=== PATIENT | male | born 1990 | race Caucasian/White ===

== ENCOUNTER 2018-01-10 14:15 | Emergency (ER) | payer OTHER ==
[2018-01-10 14:27] VITALS: BP 138/91
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
--- NOTE | 2018-01-12 09:00 | CT ---
CT mandible Technique: Multiple axial sections through the mandible were obtained. Intravenous contrast was not utilized. Reconstructed coronal and sagittal images were reviewed. Findings: Plate and screws are identified within the left side of the mandible affixing a fracture line, alignment appears anatomic. Small amount of soft tissue air is seen at the surgical site. Temporomandibular joints appear within normal limits. Defect is noted at the site of previous posterior molar on the left side compatible with recent molar extraction. No additional abnormality is appreciated. Impression: 1. Fracture which appears anatomic in alignment and affixed with plate and screws within the left side of the mandible. 2. Lucent defect within the posterior left mandible compatible with recent molar extraction. 3. Small amount of soft tissue air is noted in the area of previous surgery which is felt to be incidental. Diagnostic code #3 Agree with preliminary report issued by [employer] [facility] ([facility] preliminary report dictated on 01/10/18, 6:03 PM Central Time)
== END 2018-01-10 17:39 | disposition home or self-care (01) ==
LOC: JD.ED 14:15
DX: G89.18 Other acute postprocedural pain (principal); R68.84 Jaw pain; F17.210 Nicotine dependence, cigarettes, uncomplicated; Z98.890 Other specified postprocedural states
CPT/HCPCS: 36415; 70486; 70486-26; 85007; 85027; 99283; 99284-25

== ENCOUNTER 2018-01-10 20:46 | Inpatient (IN) | payer OTHER ==
[2018-01-10] MEDS ORDERED: Sodium Chloride 0.9% 1,000 ML IV ONE (21:56)
[2018-01-10] MEDS ORDERED: Sodium Chloride 0.9% 10 ML Syringe FLUSH PRN ×2 (21:56→21:57)
[2018-01-10] MEDS ORDERED: Ketorolac 30 MG/ML SDV IVPUSH ONE (21:56)
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
[2018-01-10] MEDS ORDERED: Clindamycin Phosphate 900 MG in Sodium Chloride 0.9% 100 ML IV ONE (23:08)
[2018-01-10] MEDS ORDERED: VANCOMYCIN IV ONE (23:11)
[2018-01-10] MEDS ORDERED: SODIUM CHLORIDE 0.9% IV ONE (23:11)
[2018-01-10] MEDS ORDERED: Vancomycin 1 GM, Vancomycin 500 MG in Sodium Chloride 0.9% 500 ML IV ONE (23:14)
[2018-01-10] MEDS ORDERED: Ondansetron 4 MG/2 ML SDV IV PRN (23:36)
[2018-01-10] MEDS ORDERED: Polyethylene Glycol 3350 Powder 17 GM Packet PO PRN (23:36)
[2018-01-10] MEDS ORDERED: Promethazine 12.5 MG in Sodium Chloride 0.9% 50 ML IV PRN (23:36)
[2018-01-10] MEDS ORDERED: Albuterol/Ipratropium 3.0-0.5 MG/3 ML Neb Soln NEB PRN (23:36)
[2018-01-10] MEDS ORDERED: Vancomycin 1 GM AdvVial ONE (23:36)
[2018-01-10] MEDS ORDERED: Metoprolol Tartrate 5 MG/5 ML SDV IVPUSH PRN (23:36)
[2018-01-10] MEDS ORDERED: LORazepam 2 MG/ML SDV IVPUSH PRN (23:36)
[2018-01-10] MEDS ORDERED: Docusate Sodium 100 MG Cap PO PRN (23:36)
[2018-01-10] MEDS ORDERED: Vancomycin 500 MG SDV ONE (23:36)
[2018-01-10] MEDS ORDERED: hydrALAZINE 20 MG/ML SDV IVPUSH PRN (23:36)
[2018-01-10] MEDS ORDERED: oxyCODONE 5 MG Tab PO PRN (23:36)
[2018-01-10] MEDS ORDERED: LORazepam 2 MG/ML SDV IV PRN ×2 (23:36→23:55)
[2018-01-10] MEDS ORDERED: Bisacodyl 5 MG Tab PO PRN (23:36)
[2018-01-10] MEDS ORDERED: Acetaminophen 325 MG Tab PO PRN (23:36)
[2018-01-10] MEDS ORDERED: Sodium Chloride 0.9% 0 ML ONE (23:37)
[2018-01-10] MEDS ORDERED: Sodium Chloride 0.9% 500 ML ONE (23:43)
[2018-01-10] MEDS ORDERED: Vancomycin 1 GM SDV ONE (23:44)
[2018-01-10] MEDS ORDERED: Vancomycin 500 MG SDV IV SCH (23:45)
[2018-01-10] MEDS ORDERED: Vancomycin 1 GM, Vancomycin 750 MG in Sodium Chloride 0.9% 500 ML IV ONE (23:45)
[2018-01-11] MEDS: Sodium Chloride 0.9% 1,000 ML IV SCH ×3 (01:10→16:55)
[2018-01-11] MEDS: HYDROmorphone 0.5 MG/0.5 ML Syringe IVPUSH PRN ×2 (01:11→06:45)
[2018-01-11] MEDS: Temazepam 15 MG Cap PO PRN ×2 (01:11→21:05)
[2018-01-11] MEDS: Clindamycin Phosphate 600 MG in Sodium Chloride 0.9% 100 ML IV SCH ×3 (06:40→18:48)
--- NOTE | 2018-01-11 07:59 | PCM.HP ---
H&P History of Present Illness - General Date of Service: 01/11/18 Admit Problem/Dx: Admission Diagnosis/Problem Admission Diagnosis/Problem Cellulitis Source of Information: Patient, Family, Old Records, Provider, RN Notes Reviewed History Limitations: Reports: No Limitations - History of Present Illness Initial Comments - Free Text/Narative: This is a 27 yo healthy young male with no significant past medical hx who comes in with complaints of mandibular, lower jaw and anterior neck pain associated with dysphagia, after undergoing mandibular surgery on 01/06/2018. He was prescribed with oral antibiotic and percocet but his pain was out of control. His speech is mildly abnormal and he has difficulty with eating or drinking. He denies any fever or chills. He was seen initially by Dr. Cormier in ER but was sent home with the same regimen after consulting with a specialist Dr. Webster. However his symptoms continue to linger and therefore he comes back to ED for further evaluation and management. His initial work up in ED shows a CBC remarkable for WBC of 18.01, MCHC of 36, Platelet count of 367, MPV of 9.1, Neutrophils of 84%, Lymphocytes of 5% and Eosinophils/Basophils of 0%. His chemistry is significant for sodium of 135, AG of 15.6, Glucose of 109, Ca2+ of 10.2, CRP of 1.8, and Total Protein of 8.8. His facial and sinus imaging study reads Status post ORIF left mandible. Extracted 3rd molar on the left. Patient is being admitted for Intractable Mandibular, Lower Jaw and Neck Pain with Possible SSTI. Throat Pain Score (Numeric/FACES): 10 - Related Data Allergies/Adverse Reactions: Allergies Allergy/AdvReac Type Severity Reaction Status Date / Time No Known Allergies Allergy Verified 01/11/18 02:03 Home Medications: Home Meds Acetaminophen/oxyCODONE [Percocet 325-5 MG] 1 each PO Q4HR PRN 01/10/18 [History ] Amoxicillin/Clavulanate K [Augmentin 500-125 MG] 1 tab PO BID 01/10/18 [History] Famotidine 40 mg PO DAILY #30 tablet 01/12/18 [Rx] Ibuprofen [Motrin] 600 mg PO Q6H PRN #20 tab 01/12/18 [Rx] Past Medical History Musculoskeletal History: Reports: Fracture Other Musculoskeletal History: back injury, Fx- no surgery needed. - Infectious Disease History Infectious Disease History: Reports: Chicken Pox, Influenza - Past Surgical History HEENT Surgical History: Reports: Oral Surgery, Other (See Below) Other HEENT Surgeries/Procedures: jaw surgery GI Surgical History: Reports: Hernia, Inguinal Musculoskeletal Surgical History: Reports: None Social & Family History - Family History Family Medical History: Noncontributory - Tobacco Use Smoking Status *Q: Current Some Day Smoker Years of Tobacco use: 2 Packs/Tins Daily: 0.1 Used Tobacco, but Quit: No Second Hand Smoke Exposure: No - Caffeine Use Caffeine Use: Reports: Energy Drinks Other Caffeine Use: 2 cans a day - Recreational Drug Use Recreational Drug Use: No - Living Situation & Occupation Living situation: Reports: Single, Alone Occupation: Employed ([employer]) H&P Review of Systems - Review of Systems: Review Of Systems: See Below General: Reports: Fatigue. Denies: Fever, Chills, Malaise, Weakness HEENT: Reports: No Symptoms, Dysphasia, Other (left mandibular and neck pain). Denies: Headaches, Sore Throat, Visual Changes Pulmonary: Denies: Shortness of Breath Cardiovascular: Reports: Lightheadedness. Denies: Chest Pain, Dyspnea on Exertion Gastrointestinal: Reports: Decreased Appetite, Difficulty Swallowing, Vomiting. Denies: Abdominal Pain, Nausea Genitourinary: Reports: No Symptoms Musculoskeletal: Reports: No Symptoms Skin: Reports: Erythema (neck). Denies: Cyanosis, Pallor Psychiatric: Denies: Depression, Anxiety, Agitation Neurological: Denies: Confusion, Headache, Difficulty Walking, Weakness, Gait Disturbance Hematologic/Lymphatic: Reports: No Symptoms Immunologic: Reports: No Symptoms Exam - Exam Exam: See Below - Vital Signs Vital Signs: Last Vital Signs Temp 36.8 C 01/11/18 03:36 Pulse 92 01/11/18 03:36 Resp 12 01/11/18 03:36 BP 112/64 01/11/18 03:36 Pulse Ox 98 01/11/18 03:36 Weight: 64.138 kg - Exam General: Alert, Oriented, Cooperative, Mild Distress HEENT: Conjunctiva Clear, EACs Clear, EOMI, Hearing Intact, Nares Patent, Normal Nasal Septum, Pupils Equal, Pupils Reactive, Other (limited oropharyngeal exam; lower frontal teeth gum is inflamed; difficulty opening his mouth; leftside of his face near lower jaw is swollen, red and tender to palpation). No: Mucosa Moist & [place], Posterior Pharynx Clear Neck: Supple, Trachea Midline Lungs: Clear to Auscultation, Normal Respiratory Effort Cardiovascular: Regular Rate, Regular Rhythm GI/Abdominal Exam: Normal Bowel Sounds, Soft, Non-Tender, No Organomegaly, No Distention, No Abnormal Bruit (Male) Exam: Deferred Rectal (Males) Exam: Deferred Back Exam: Normal Inspection, Full Range of Motion Extremities: Normal Inspection, Normal Range of Motion, Non-Tender, No Pedal Edema, Normal Capillary Refill Peripheral Pulses: 3+: Posterior Tibial (L), Posterior Tibial (R), Dorsalis Pedis (L), Dorsalis Pedis (R) Skin: Warm, Dry, Intact Neuro Extensive - Mental Status: Oriented x3, Normal Cognition, Memory Intact Neuro Extensive - Motor, Sensory, Reflexes: CN II-XII Intact, Normal Gait DTR: 2+: Achilles (L), Achilles (R) Psychiatric: Alert, Normal Affect, Normal Mood - Patient Data Lab Results Last 24 hrs: Laboratory Results - last 24 hr 01/10/18 01/10/18 01/11/18 Range/Units 22:16 22:16 05:45 WBC 18.01 H 11.89 H (4.23-9.07) K/mm3 RBC 5.90 5.20 (4.63-6.08) M/mm3 Hgb 17.4 15.3 (13.7-17.5) gm/L Hct 48.4 43.4 (40.1-51.0) % MCV 82.0 83.5 (79.0-92.2) fl MCH 29.5 29.4 (25.7-32.2) pg MCHC 36.0 H 35.3 (32.2-35.5) g/dl RDW Std Deviation 36.5 36.7 (35.1-43.9) fL Plt Count 367 H 335 (163-337) K/mm3 MPV 9.1 L 9.3 L (9.4-12.3) fl Neut % (Auto) 75.4 H (34.0-67.9) % Lymph % (Auto) 15.2 L (21.8-53.1) % [place] % (Auto) 8.6 (5.3-12.2) % Eos % (Auto) 0.5 L (0.8-7.0) Baso % (Auto) 0.1 (0.1-1.2) % Neut # (Auto) 8.97 H (1.78-5.38) K/mm3 Lymph # (Auto) 1.81 (1.32-3.57) K/mm3 [place] # (Auto) 1.02 H (0.30-0.82) K/mm3 Eos # (Auto) 0.06 (0.04-0.54) K/mm3 Baso # (Auto) 0.01 (0.01-0.08) K/mm3 Neutrophils % (Manual) 84 H (40-60) % Band Neutrophils % 0 (0-10) % Lymphocytes % (Manual) 5 L (20-40) % Atypical Lymphs % 3 % Monocytes % (Manual) 8 (2-10) % Eosinophils % (Manual) 0 L (0.8-7.0) % Basophils % (Manual) 0 L (0.2-1.2) Toxic Granulation 1+ slight Platelet Estimate Adequate Plt Morphology Comment See note RBC Morph Comment Normal Sodium 135 L (136-145) mEq/L Potassium 4.6 (3.5-5.1) mEq/L Chloride 99 (98-107) mEq/L Carbon Dioxide 25 (21-32) mEq/L Anion Gap 15.6 H (5-15) BUN 15 (7-18) mg/dL Creatinine 1.0 (0.7-1.3) mg/dL Est Cr Clr Drug Dosing 105.84 mL/min Estimated GFR (MDRD) > 60 (>60) mL/min BUN/Creatinine Ratio 15.0 (14-18) Glucose 109 H (74-106) mg/dL Calcium 10.2 H (8.5-10.1) mg/dL Magnesium (1.8-2.4) mg/dl Total Bilirubin 0.6 (0.2-1.0) mg/dL AST 18 (15-37) U/L ALT 27 (16-63) U/L Alkaline Phosphatase 63 (46-116) U/L C-Reactive Protein 1.8 H* (<1.0) mg/dL Total Protein 8.8 H (6.4-8.2) g/dl Albumin 4.2 (3.4-5.0) g/dl Globulin 4.6 gm/dL Albumin/Globulin Ratio 0.9 L (1-2) 01/11/18 Range/Units 05:45 WBC (4.23-9.07) K/mm3 RBC (4.63-6.08) M/mm3 Hgb (13.7-17.5) gm/L Hct (40.1-51.0) % MCV (79.0-92.2) fl MCH (25.7-32.2) pg MCHC (32.2-35.5) g/dl RDW Std Deviation (35.1-43.9) fL Plt Count (163-337) K/mm3 MPV (9.4-12.3) fl Neut % (Auto) (34.0-67.9) % Lymph % (Auto) (21.8-53.1) % [place] % (Auto) (5.3-12.2) % Eos % (Auto) (0.8-7.0) Baso % (Auto) (0.1-1.2) % Neut # (Auto) (1.78-5.38) K/mm3 Lymph # (Auto) (1.32-3.57) K/mm3 [place] # (Auto) (0.30-0.82) K/mm3 Eos # (Auto) (0.04-0.54) K/mm3 Baso # (Auto) (0.01-0.08) K/mm3 Neutrophils % (Manual) (40-60) % Band Neutrophils % (0-10) % Lymphocytes % (Manual) (20-40) % Atypical Lymphs % % Monocytes % (Manual) (2-10) % Eosinophils % (Manual) (0.8-7.0) % Basophils % (Manual) (0.2-1.2) Toxic Granulation Platelet Estimate Plt Morphology Comment RBC Morph Comment Sodium 134 L (136-145) mEq/L Potassium 4.6 (3.5-5.1) mEq/L Chloride 103 (98-107) mEq/L Carbon Dioxide 25 (21-32) mEq/L Anion Gap 10.6 (5-15) BUN 17 (7-18) mg/dL Creatinine 0.8 (0.7-1.3) mg/dL Est Cr Clr Drug Dosing 124.71 mL/min Estimated GFR (MDRD) > 60 (>60) mL/min BUN/Creatinine Ratio 21.3 H (14-18) Glucose 88 (74-106) mg/dL Calcium 8.8 (8.5-10.1) mg/dL Magnesium 2.0 (1.8-2.4) mg/dl Total Bilirubin (0.2-1.0) mg/dL AST (15-37) U/L ALT (16-63) U/L Alkaline Phosphatase (46-116) U/L C-Reactive Protein 3.6 H* (<1.0) mg/dL Total Protein (6.4-8.2) g/dl Albumin (3.4-5.0) g/dl Globulin gm/dL Albumin/Globulin Ratio (1-2) Result Diagrams: 01/12/18 07:30 01/12/18 07:30 Problem List Initiated/Reviewed/Updated: Yes Orders Last 24hrs: Active Orders 24 hr Category Date Time Status Admission Status [Patient Status] [ADT] Routine ADT 01/10/18 23:58 Active Activity as Tolerated [RC] , Care 01/11/18 05:25 Active Height and Weight [RC] 04 Care 01/10/18 23:36 Active Intake and Output [RC] 04,16 Care 01/10/18 23:36 Active Oxygen Therapy [RC] PRN Care 01/10/18 23:36 Active RT Aerosol Therapy [RC] ASDIRECTED Care 01/10/18 23:38 Active VTE/DVT Education [RC] PER UNIT ROUTINE Care 01/10/18 23:36 Active Vital Signs [RC] Q4HR Care 01/10/18 23:36 Active [employer] Evaluation and Treatment [CONS] Routine Cons 01/10/18 23:36 Active Clear Liquid Diet [DIET] Diet 01/10/18 Breakfast Active BASIC METABOLIC PANEL,BMP [CHEM] AM Lab 01/12/18 05:11 Ordered BASIC METABOLIC PANEL,BMP [CHEM] AM Lab 01/13/18 05:11 Ordered BASIC METABOLIC PANEL,BMP [CHEM] AM Lab 01/14/18 05:11 Ordered BASIC METABOLIC PANEL,BMP [CHEM] AM Lab 01/15/18 05:11 Ordered C-REACTIVE PROTEIN [CHEM] AM Lab 01/12/18 05:11 Ordered C-REACTIVE PROTEIN [CHEM] AM Lab 01/13/18 05:11 Ordered C-REACTIVE PROTEIN [CHEM] AM Lab 01/14/18 05:11 Ordered C-REACTIVE PROTEIN [CHEM] AM Lab 01/15/18 05:11 Ordered CBC WITH AUTO DIFF [HEME] AM Lab 01/12/18 05:11 Ordered CBC WITH AUTO DIFF [HEME] AM Lab 01/13/18 05:11 Ordered CBC WITH AUTO DIFF [HEME] AM Lab 01/14/18 05:11 Ordered CBC WITH AUTO DIFF [HEME] AM Lab 01/15/18 05:11 Ordered MAGNESIUM [CHEM] AM Lab 01/12/18 05:11 Ordered MAGNESIUM [CHEM] AM Lab 01/13/18 05:11 Ordered MAGNESIUM [CHEM] AM Lab 01/14/18 05:11 Ordered MAGNESIUM [CHEM] AM Lab 01/15/18 05:11 Ordered VANCOMYCIN TROUGH [CHEM] Timed Lab 01/12/18 07:30 Ordered Acetaminophen [Tylenol] Med 01/10/18 23:36 Active 650 mg PO Q4H PRN Albuterol/Ipratropium [DuoNeb 3.0-0.5 MG/3 ML] Med 01/10/18 23:36 Active 3 ml NEB Q4H PRN Bisacodyl [Dulcolax] Med 01/10/18 23:36 Active 5 mg PO DAILY PRN Clindamycin Phosphate [Cleocin] 600 mg Med 01/11/18 06:00 Active Sodium Chloride 0.9% [Normal Saline] 100 ml IV Q6H Docusate Sodium [Colace] Med 01/10/18 23:36 Active 100 mg PO BID PRN Docusate Sodium/Sennosides [Senna Plus] Med 01/10/18 23:36 Active 1 tab PO BID PRN Enoxaparin [Lovenox] Med 01/11/18 09:00 Active 40 mg SUBCUT DAILY Famotidine [Pepcid] Med 01/11/18 09:00 Active 20 mg IVPUSH BID HYDROmorphone [Dilaudid] Med 01/10/18 23:36 Active 0.5 mg IVPUSH Q2H PRN LORazepam [Ativan] Med 01/10/18 23:55 Active 0.5 mg IV Q6H PRN LORazepam [Ativan] Med 01/10/18 23:36 Active 2 mg IVPUSH Q4H PRN Magnesium Rep Pharmacy to Dose [Pharmacy to Dose - Med 01/10/18 23:45 Pending Magnesium Replacement] 1 dose .XX ASDIRECTED Metoprolol Tartrate [Lopressor] Med 01/10/18 23:36 Active 5 mg IVPUSH Q4H PRN Naproxen [Naprosyn] Med 01/11/18 09:00 Active 500 mg PO Q12HR Ondansetron [Zofran] Med 01/10/18 23:36 Active 4 mg IV Q6H PRN Polyethylene Glycol 3350 [MiraLAX] Med 01/10/18 23:36 Active 17 gm PO DAILY PRN Potassium Rep Pharmacy to Dose [Pharmacy to Dose - Med 01/10/18 23:45 Pending Potassium Replacement] 1 dose .XX ASDIRECTED Promethazine [Phenergan] 12.5 mg Med 01/10/18 23:36 Active Sodium Chloride 0.9% [Normal Saline] 50 ml IV Q6H Saccharomyces Boulardii [Florastor] Med 01/11/18 08:00 Active 250 mg PO TID@0800,1500,2100 Sodium Chloride 0.9% [Normal Saline] 1,000 ml Med 01/10/18 23:45 Active IV ASDIRECTED Sodium Chloride 0.9% [Saline Flush] Med 01/10/18 21:56 Active 10 ml FLUSH ASDIRECTED PRN Sodium Chloride 0.9% [Saline Flush] Med 01/10/18 21:57 Active 10 ml FLUSH ASDIRECTED PRN Temazepam [Restoril] Med 01/10/18 23:36 Active 15 mg PO BEDTIME PRN Vancomycin Pharmacy to Dose [Pharmacy to Dose - Med 01/10/18 23:45 Pending Vancomycin] 1 dose .XX ASDIRECTED Vancomycin [Vancocin] 1 gm Med 01/11/18 08:00 Active Sodium Chloride 0.9% [Normal Saline] 250 ml IV Q8H hydrALAZINE [Apresoline] Med 01/10/18 23:36 Active 20 mg IVPUSH Q4H PRN oxyCODONE Med 01/10/18 23:36 Active 5 mg PO Q4H PRN oxyCODONE ER [OxyCONTIN] Med 01/11/18 09:00 Active 20 mg PO Q12HR Peripheral IV Insertion Adult [OM.PC] Routine Oth 01/10/18 21:56 Ordered Peripheral IV Insertion Adult [OM.PC] Routine Oth 01/10/18 21:57 Ordered Sequential Compression Device [OM.PC] Per Unit Routine Oth 01/10/18 23:36 Ordered Resuscitation Status Routine Resus Stat 01/10/18 23:36 Ordered Medication Orders Acetaminophen (Tylenol) 650 mg PO Q4H PRN PRN Reason: Pain (Mild 1-3)/fever Albuterol/Ipratropium (Duoneb 3.0-0.5 Mg/3 Ml) 3 ml NEB Q4H PRN PRN Reason: Shortness Of Breath/wheezing Bisacodyl (Dulcolax) 5 mg PO DAILY PRN PRN Reason: Constipation Docusate Sodium (Colace) 100 mg PO BID PRN PRN Reason: Constipation Enoxaparin Sodium (Lovenox) 40 mg SUBCUT DAILY [facility] Famotidine (Pepcid) 20 mg IVPUSH BID [facility] Hydralazine HCl (Apresoline) 20 mg IVPUSH Q4H PRN PRN Reason: Hypertension Hydromorphone HCl (Dilaudid) 0.5 mg IVPUSH Q2H PRN PRN Reason: Pain (severe 7-10) Last Admin: 01/11/18 06:45 Dose: 0.5 mg Admin: 01/11/18 01:11 Dose: 0.5 mg Promethazine HCl 12.5 mg/ (Sodium Chloride) 50.5 mls @ 100 mls/hr IV Q6H PRN PRN Reason: Nausea/Vomiting Sodium Chloride (Normal Saline) 1,000 mls @ 125 mls/hr IV ASDIRECTED [facility] Clindamycin Phosphate 600 mg/ (Sodium Chloride) 104 mls @ 100 mls/hr IV Q6H [facility] Last Admin: 01/11/18 06:40 Dose: 100 mls/hr Vancomycin HCl 1 gm/ Sodium (Chloride) 250 mls @ 250 mls/hr IV Q8H [facility] Lorazepam (Ativan) 2 mg IVPUSH Q4H PRN PRN Reason: Seizures Lorazepam (Ativan) 0.5 mg IV Q6H PRN PRN Reason: Anxiety Magnesium Sulfate (Pharmacy To Dose - Magnesium Replacement) 1 dose .XX ASDIRECTED [facility] Metoprolol Tartrate (Lopressor) 5 mg IVPUSH Q4H PRN PRN Reason: Tachycardia Naproxen (Naprosyn) 500 mg PO Q12HR [facility] Ondansetron HCl (Zofran) 4 mg IV Q6H PRN PRN Reason: Nausea/Vomiting Oxycodone HCl (Oxycodone) 5 mg PO Q4H PRN PRN Reason: Pain (moderate 4-6) Oxycodone HCl (Oxycontin) 20 mg PO Q12HR [facility] Polyethylene Glycol (Miralax) 17 gm PO DAILY PRN PRN Reason: Constipation Potassium Chloride (Pharmacy To Dose - Potassium Replacement) 1 dose .XX ASDIRECTED [facility] Saccharomyces Boulardii (Florastor) 250 mg PO TID@0800,1500,2100 [facility] Senna/Docusate Sodium (Senna Plus) 1 tab PO BID PRN PRN Reason: Constipation Sodium Chloride (Saline Flush) 10 ml FLUSH ASDIRECTED PRN PRN Reason: Keep Vein Open Last Admin: 01/10/18 22:03 Dose: 10 ml Sodium Chloride (Saline Flush) 10 ml FLUSH ASDIRECTED PRN PRN Reason: Keep Vein Open Last Admin: 01/10/18 22:03 Dose: 10 ml Temazepam (Restoril) 15 mg PO BEDTIME PRN PRN Reason: Sleep Last Admin: 01/11/18 01:11 Dose: 15 mg Vancomycin HCl (Pharmacy To Dose - Vancomycin) 1 dose .XX ASDIRECTED [facility] Assessment/Plan Comment:: Assessment/Plan: Acute: Intractable Mandibular/Neck Pain ([place]rineo Angina) - S/p Tooth Extraction and ORIF - Oral pain pill that was prescribed to him was inadequate - CRP 18.01 ---> 11.89 - Neutrophils 84%-->75.4% - CRP 1.8--> 3.6 - NSAIDs, Narcotic Pills and IVs for Pain and Inflammation SSTI Post Operative Mandibular Surgery Vs Reactive Process - DDx: Lemierre's Syndrome - IV Antibiotic to cover for anaerobes and gram positives Plan: Admitted overnight to [facility] Resume Home Meds Routine AM 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
[2018-01-11] MEDS ORDERED: Saccharomyces Boulardii (Probiotic) 250 MG Cap PO SCH (08:00)
[2018-01-11] MEDS: Famotidine 20 MG/2 ML SDV IVPUSH SCH ×2 (08:20→21:05)
[2018-01-11] MEDS: Enoxaparin 40 MG/0.4 ML Syringe SUBCUT SCH (08:20)
[2018-01-11] MEDS ORDERED: oxyCODONE ER 20 MG TAB.ER PO SCH (09:00)
[2018-01-11] MEDS ORDERED: Enoxaparin 30 MG/0.3 ML Syringe SUBCUT SCH (09:00)
[2018-01-11] MEDS ORDERED: Naproxen 500 MG Tab PO SCH (09:00)
[2018-01-11] MEDS: Ketorolac 30 MG/ML SDV IVPUSH PRN ×3 (09:35→21:06)
[2018-01-11] MEDS ORDERED: Diphenhydramine/Lidocaine/MagAl/Simethicone 119 ML Bottle PO PRN (18:17)
[2018-01-11] MEDS: Saccharomyces Boulardii (Probiotic) 250 MG Cap PO SCH (21:05)
[2018-01-12] MEDS: Clindamycin Phosphate 600 MG in Sodium Chloride 0.9% 100 ML IV SCH ×2 (01:34→05:53)
[2018-01-12] MEDS: Sodium Chloride 0.9% 1,000 ML IV SCH (02:44)
[2018-01-12] MEDS: Ketorolac 30 MG/ML SDV IVPUSH PRN (05:52)
[2018-01-12] MEDS: Saccharomyces Boulardii (Probiotic) 250 MG Cap PO SCH (08:33)
[2018-01-12] MEDS: Famotidine 20 MG/2 ML SDV IVPUSH SCH (08:34)
[2018-01-12] MEDS: Enoxaparin 40 MG/0.4 ML Syringe SUBCUT SCH (08:34)
[2018-01-12 09:11] VITALS: BP 129/70
--- NOTE | 2018-01-12 12:46 | PCM.DCSUM1 ---
Discharge Summary - Hospital Course Brief History: This is a 27 yo healthy young male with no significant past medical hx who comes in with complaints of mandibular, lower jaw and anterior neck pain associated with dysphagia, after undergoing mandibular surgery on 01/06/2018. He was prescribed with oral antibiotic and percocet but his pain was out of control. His speech is mildly abnormal and he has difficulty with eating or drinking. He denies any fever or chills. He was seen initially by Dr. Cormier in ER but was sent home with the same regimen after consulting with a specialist Dr. Webster. However his symptoms continue to linger and therefore he comes back to ED for further evaluation and management. His initial work up in ED shows a CBC remarkable for WBC of 18.01, MCHC of 36, Platelet count of 367 , MPV of 9.1, Neutrophils of 84%, Lymphocytes of 5% and Eosinophils/Basophils of 0%. His chemistry is significant for sodium of 135, AG of 15.6, Glucose of 109, Ca2+ of 10.2, CRP of 1.8, and Total Protein of 8.8. His facial and sinus imaging study reads Status post ORIF left mandible. Extracted 3rd molar on the left. Patient is being admitted for Intractable Mandibular, Lower Jaw and Neck Pain with Possible SSTI. Diagnosis: Stroke: No Modified Yoni Scale: No Symptoms at All Modified Fargo Scale Score: 0 - Discharge Data Discharge Date: 01/12/18 Discharge Disposition: Home, Self-Care 01 Condition: Good - Patient Summary/Data Operative Procedure(s) Performed: None Complications: None Consults: Consultations 01/10/18 23:36 CONDUCTOR/ENGINEER Evaluation and Treatment [CONS] Routine 01/12/18 10:06 Consult to Dietary [Consult to Machine Gunner] [CONS] Routine Labs Pending at D/C: None Recommended Follow-up Testing/Procedures: None Planned Operative Procedure(s) after DC: None Hospital Course: The patient was primarily admitted for treatment of sheryl angina secondary to recent surgical correction of his broken left mandible. Unfortunately, he was not treated adequately for his pain and therefore he presented to the emergency department at least twice prior to coming in for admission for optimal pain control. Upon admission to the floor, he was provided NSAIDs for inflammation and Opioids (oral and intravenous) for pain control. IV antibiotics were also added but discontinued once his inflammatory markers trended down. The patient immediately got better with the above regimen provided. As for his nutritional intake and abnormal swallowing, dietary and CONDUCTOR/ENGINEER were consulted respectively. His hospital course was uncomplicated and he remained clinically and hemodynamically stable up until discharge. Patient was sent home with prescriptions for NSAIDs and H2B. He was advised to follow discharge instructions and was further advised to follow up his PCP after discharge. The patient expressed understanding and in agreement with the plan as discussed above. All questions were answered. - Patient Instructions Diet, Other: As per Dietary and CONDUCTOR/ENGINEER Therapist's Recommendations Activity: As Tolerated Driving: May Drive Today Showering/Bathing: May Shower Notify Provider of: Fever, Increased Pain, Swelling and Redness, Drainage, Nausea and/or Vomiting Other/Special Instructions: - Please take all new medications as directed. - Resume all home medications and continue routine home activities as tolerated. - Call or follow up with your PCP for any questions or concerns after discharge. - Follow up with your PCP in 1 week if needed. - Come back or seek immediate care should your symptoms persist or get worse - Discharge Plan *PRESCRIPTION DRUG MONITORING PROGRAM REVIEWED*: Not Applicable *COPY OF PRESCRIPTION DRUG MONITORING REPORT IN PATIENT ZANE: Not Applicable Prescriptions/Med Rec: Famotidine 40 mg PO DAILY #30 tablet Ibuprofen [Motrin] 600 mg PO Q6H PRN #20 tab PRN Reason: Anti-inflammatory Agent Home Medications: Home Meds Acetaminophen/oxyCODONE [Percocet 325-5 MG] 1 each PO Q4HR PRN 01/10/18 [History ] Amoxicillin/Clavulanate K [Augmentin 500-125 MG] 1 tab PO BID 01/10/18 [History] Famotidine 40 mg PO DAILY #30 tablet 01/12/18 [Rx] Ibuprofen [Motrin] 600 mg PO Q6H PRN #20 tab 01/12/18 [Rx] Patient Handouts: Dysphagia, Cellulitis, Adult, [id number], Pain Medicine Instructions, [id number], Steps to Quit Smoking Referrals: Luan Foster MD [Primary Care Provider] - - Discharge Summary/Plan Comment DC Time >30 min.: No Discharge Summary/Plan Comment: Discharge to Home Offered practical counseling on smoking cigarettes. He was counseled about the dangers of smoking and associated health risks. At this time he is not ready to quit but receptive to the idea of smoking cessation. Patient was provided reading materials or brochures to help when to quit smoking. He was advised to set a specific date, call the Quit line and follow up with his PCP when ready to quit. - General Info Date of Service: 01/12/18 Admission Dx/Problem (Free Text: Admission Diagnosis/Problem Admission Diagnosis/Problem Cellulitis Functional Status: Reports: Pain Controlled, Tolerating Diet, Ambulating, Urinating. Denies: New Symptoms - Review of Systems General: Denies: Fever, Weakness, Fatigue, Malaise HEENT: Reports: No Symptoms Pulmonary: Denies: Shortness of Breath Cardiovascular: Denies: Chest Pain, Palpitations, Dyspnea on Exertion, Lightheadedness Gastrointestinal: Reports: Difficulty Swallowing (but better). Denies: Abdominal Pain, Decreased Appetite, Nausea, Vomiting Genitourinary: Reports: No Symptoms Musculoskeletal: Denies: Neck Pain Skin: Denies: Cyanosis, Jaundice, Mottled, Pallor, Diaphoresis, Bruising, Pruritis, Rash Neurological: Denies: Confusion, Difficulty Walking, Weakness, Gait Disturbance Psychiatric: Denies: Depression, Anxiety, Agitation, Hallucinations Systems Review Comment: No overnight or acute issues. He did not sleep good because he could not get comfortable. His pain level is better. His facial edema and ability to chew and swallow have significantly improved. He has been afebrile and his WBC is now back to normal. He has no complaints this AM and feels good. - Patient Data Vitals - Most Recent: Last Vital Signs Temp 36.9 C 01/12/18 08:16 Pulse 67 01/12/18 08:16 Resp 16 01/12/18 08:16 BP 129/70 01/12/18 08:16 Pulse Ox 98 01/12/18 08:16 Weight - Most Recent: 64.552 kg I&O - Last 24 hours: Intake & Output 01/11/18 01/12/18 01/12/18 22:59 06:59 14:59 Intake Total 3415 2085 560 Output Total 1999 Balance 1415 2085 560 Lab Results - Last 24 hrs: Laboratory Results - last 24 hr 01/12/18 01/12/18 01/12/18 Range/Units 07:30 07:30 07:30 WBC 5.27 (4.23-9.07) K/mm3 RBC 5.03 (4.63-6.08) M/mm3 Hgb 14.8 (13.7-17.5) gm/L Hct 42.3 (40.1-51.0) % MCV 84.1 (79.0-92.2) fl MCH 29.4 (25.7-32.2) pg MCHC 35.0 (32.2-35.5) g/dl RDW Std Deviation 36.3 (35.1-43.9) fL Plt Count 319 (163-337) K/mm3 MPV 8.9 L (9.4-12.3) fl Neut % (Auto) 64.0 (34.0-67.9) % Lymph % (Auto) 22.6 (21.8-53.1) % [place]field % (Auto) 9.9 (5.3-12.2) % Eos % (Auto) 2.7 (0.8-7.0) Baso % (Auto) 0.6 (0.1-1.2) % Neut # (Auto) 3.38 (1.78-5.38) K/mm3 Lymph # (Auto) 1.19 L (1.32-3.57) K/mm3 [place] # (Auto) 0.52 (0.30-0.82) K/mm3 Eos # (Auto) 0.14 (0.04-0.54) K/mm3 Baso # (Auto) 0.03 (0.01-0.08) K/mm3 Sodium 140 (136-145) mEq/L Potassium 4.4 (3.5-5.1) mEq/L Chloride 104 (98-107) mEq/L Carbon Dioxide 26 (21-32) mEq/L Anion Gap 14.4 (5-15) BUN 9 (7-18) mg/dL Creatinine 0.8 (0.7-1.3) mg/dL Est Cr Clr Drug Dosing 125.52 mL/min Estimated GFR (MDRD) > 60 (>60) mL/min BUN/Creatinine Ratio 11.3 L (14-18) Glucose 85 (74-106) mg/dL Calcium 8.9 (8.5-10.1) mg/dL Magnesium 2.0 (1.8-2.4) mg/dl C-Reactive Protein 5.1 H* (<1.0) mg/dL Vancomycin Trough 10.6 (10.0-20.0) Med Orders - Current: Current Medications Acetaminophen (Tylenol) 650 mg PO Q4H PRN PRN Reason: Pain (Mild 1-3)/fever Albuterol/Ipratropium (Duoneb 3.0-0.5 Mg/3 Ml) 3 ml NEB Q4H PRN PRN Reason: Shortness Of Breath/wheezing Bisacodyl (Dulcolax) 5 mg PO DAILY PRN PRN Reason: Constipation Diphenhydr/Magaldrate/Simeth/Lidoca (First-Mouthwash Blm Susp) 30 ml PO Q4HR PRN PRN Reason: Other Docusate Sodium (Colace) 100 mg PO BID PRN PRN Reason: Constipation Enoxaparin Sodium (Lovenox) 40 mg SUBCUT DAILY [facility] Last Admin: 01/12/18 08:34 Dose: Not Given Famotidine (Pepcid) 20 mg IVPUSH BID [facility] Last Admin: 01/12/18 08:34 Dose: 20 mg Hydralazine HCl (Apresoline) 20 mg IVPUSH Q4H PRN PRN Reason: Hypertension Hydromorphone HCl (Dilaudid) 0.5 mg IVPUSH Q2H PRN PRN Reason: Pain (severe 7-10) Last Admin: 01/11/18 06:45 Dose: 0.5 mg Promethazine HCl 12.5 mg/ (Sodium Chloride) 50.5 mls @ 100 mls/hr IV Q6H PRN PRN Reason: Nausea/Vomiting Sodium Chloride (Normal Saline) 1,000 mls @ 125 mls/hr IV ASDIRECTED [facility] Last Admin: 01/12/18 02:44 Dose: 125 mls/hr Ketorolac Tromethamine (Toradol) 30 mg IVPUSH Q6H PRN PRN Reason: Pain Last Admin: 01/12/18 05:52 Dose: 30 mg Lorazepam (Ativan) 2 mg IVPUSH Q4H PRN PRN Reason: Seizures Lorazepam (Ativan) 0.5 mg IV Q6H PRN PRN Reason: Anxiety Magnesium Sulfate (Pharmacy To Dose - Magnesium Replacement) 1 dose .XX ASDIRECTED [facility] Metoprolol Tartrate (Lopressor) 5 mg IVPUSH Q4H PRN PRN Reason: Tachycardia Ondansetron HCl (Zofran) 4 mg IV Q6H PRN PRN Reason: Nausea/Vomiting Oxycodone HCl (Oxycodone) 5 mg PO Q4H PRN PRN Reason: Pain (moderate 4-6) Polyethylene Glycol (Miralax) 17 gm PO DAILY PRN PRN Reason: Constipation Potassium Chloride (Pharmacy To Dose - Potassium Replacement) 1 dose .XX ASDIRECTED SHEILA Saccharomyces Boulardii (Florastor) 250 mg PO BID [facility] Last Admin: 01/12/18 08:33 Dose: 250 mg Senna/Docusate Sodium (Senna Plus) 1 tab PO BID PRN PRN Reason: Constipation Sodium Chloride (Saline Flush) 10 ml FLUSH ASDIRECTED PRN PRN Reason: Keep Vein Open Last Admin: 01/10/18 22:03 Dose: 10 ml Sodium Chloride (Saline Flush) 10 ml FLUSH ASDIRECTED PRN PRN Reason: Keep Vein Open Last Admin: 01/10/18 22:03 Dose: 10 ml Temazepam (Restoril) 15 mg PO BEDTIME PRN PRN Reason: Sleep Last Admin: 01/11/18 21:05 Dose: 15 mg Discontinued Medications Sodium Chloride (Normal Saline) 1,000 mls @ 999 mls/hr IV ONETIME ONE Stop: 01/10/18 22:56 Last Admin: 01/10/18 22:03 Dose: 999 mls/hr Clindamycin Phosphate 900 mg/ (Sodium Chloride) 106 mls @ 100 mls/hr IV ONETIME ONE Stop: 01/11/18 00:11 Last Admin: 01/11/18 01:05 Dose: 100 mls/hr Sodium Chloride (Normal Saline) Confirm Administered Dose 250 mls @ as directed .ROUTE .STK-MED ONE Stop: 01/10/18 23:38 Last Admin: 01/11/18 01:07 Dose: Not Given Clindamycin Phosphate 600 mg/ (Sodium Chloride) 104 mls @ 100 mls/hr IV Q6H [facility] Last Admin: 01/12/18 05:53 Dose: 100 mls/hr Sodium Chloride (Normal Saline) Confirm Administered Dose 500 mls @ as directed .ROUTE .STK-MED ONE Stop: 01/10/18 23:44 Last Admin: 01/11/18 01:07 Dose: Not Given Vancomycin HCl 1 gm/Vancomycin HCl 750 mg/ Sodium Chloride 500 mls @ 250 mls/ hr IV ONETIME ONE Stop: 01/11/18 01:44 Last Admin: 01/10/18 23:45 Dose: 250 mls/hr Vancomycin HCl 1 gm/ Sodium (Chloride) 250 mls @ 250 mls/hr IV Q8H [facility] Last Admin: 01/12/18 08:33 Dose: 250 mls/hr Ketorolac Tromethamine (Toradol) 30 mg IVPUSH ONETIME ONE Stop: 01/10/18 21:57 Last Admin: 01/10/18 22:03 Dose: 30 mg Lorazepam (Ativan) 1 mg IV Q6H PRN PRN Reason: Anxiety Naproxen (Naprosyn) 500 mg PO Q12HR [facility] Last Admin: 01/11/18 08:20 Dose: 500 mg Oxycodone HCl (Oxycontin) 20 mg PO Q12HR [facility] Last Admin: 01/11/18 08:20 Dose: 20 mg Saccharomyces Boulardii (Florastor) 250 mg PO TID@0800,1500,2100 [facility] Last Admin: 01/11/18 08:20 Dose: 250 mg Vancomycin HCl (Vancocin) Confirm Administered Dose 1 gm .ROUTE .STK-MED ONE Stop: 01/10/18 23:37 Last Admin: 01/11/18 01:06 Dose: Not Given Vancomycin HCl (Vancomycin) Confirm Administered Dose 500 mg .ROUTE .STK-MED ONE Stop: 01/10/18 23:37 Last Admin: 01/11/18 01:07 Dose: Not Given Vancomycin HCl (Pharmacy To Dose - Vancomycin) 1 dose .XX ASDIRECTED [facility] Vancomycin HCl (Vancomycin) Confirm Administered Dose 1 gm .ROUTE .STK-MED ONE Stop: 01/10/18 23:45 Last Admin: 01/11/18 01:07 Dose: Not Given - Exam General: Reports: Alert, Oriented, Cooperative, No Acute Distress HEENT: Reports: Pupils Equal, Pupils Reactive, EOMI, Mucous Membr. Moist/[place], Other (She is able to open his mouth and speak better. ) Neck: Reports: Supple, Lymphadenopathy, Other (Left lateral neck edema significantly improved) Lungs: Reports: Clear to Auscultation, Normal Respiratory Effort Cardiovascular: Reports: Regular Rate, Regular Rhythm GI/Abdominal Exam: Normal Bowel Sounds, Soft, Non-Tender, No Organomegaly, No Distention, No Abnormal Bruit (Male) Exam: Deferred Rectal (Males) Exam: Deferred Back Exam: Reports: Normal Inspection, Decreased Range of Motion Extremities: Normal Inspection, Normal Range of Motion, Non-Tender, No Pedal Edema, Normal Capillary Refill Skin: Reports: Warm, Dry, Intact Neurological: Reports: No New Focal Deficit, Normal Gait Psy/Mental Status: Reports: Alert, Normal Affect, Normal Mood
== END 2018-01-12 14:45 | disposition home or self-care (01) | DRG 159 ==
LOC: SUPCPDRO 20:46 → JD.ED 20:46 → JD.MS 23:58
PROVIDERS: ADMIT Internal Medicine; ATTEND Internal Medicine
DX: K12.2 Cellulitis and abscess of mouth (principal); F17.210 Nicotine dependence, cigarettes, uncomplicated; Z98.890 Other specified postprocedural states; Z79.899 Other long term (current) drug therapy
CPT/HCPCS: 36415; 80048; 80053; 80202; 83735; 85007; 85025; 85027; 86140; 92610-GN; 96361; 96365; 96375; 99284-25; 99285-25; A9270-GY; J1170; J1885; J3370; J3490; J7030; J7040; J7050

== ENCOUNTER 2018-07-10 03:46 | Emergency (ER) | payer MEDICAID, OTHER ==
[2018-07-10 03:57] VITALS: BP 129/104
--- NOTE | 2018-07-10 04:11 | EDM.PDOC ---
ED HPI GENERAL MEDICAL PROBLEM - General Chief Complaint: General Stated Complaint: THROAT PAIN AND SWELLING Time Seen by Provider: 07/10/18 04:01 Source of Information: Reports: Patient History Limitations: Reports: No Limitations - History of Present Illness INITIAL COMMENTS - FREE TEXT/NARRATIVE: The patient presents with a sore throat. This has been an ongoing issue for 3 weeks. It was worse tonight and he could not sleep. He denies fevers but he does have chills at times. It hurts to swallow. He has no congestion, runny nose or ear pain. He had no tonsillectomy. He has not been around anyone who is sick with strep or mono. Onset: Gradual Duration: Week(s): (3) Location: Reports: Other (throat) Quality: Reports: Sharp Severity: Severe Improves with: Reports: None Worsens with: Reports: Other (Swallowing) Associated Symptoms: Reports: No Other Symptoms throat Pain Score (Numeric/FACES): 6 - Related Data Allergies Allergy/AdvReac Type Severity Reaction Status Date / Time No Known Allergies Allergy Verified 01/11/18 02:03 Home Meds: Home Meds . [No Known Home Meds] 07/10/18 [History] Past Medical History Musculoskeletal History: Reports: Fracture Other Musculoskeletal History: back injury, Fx- no surgery needed. - Infectious Disease History Infectious Disease History: Reports: Chicken Pox, Influenza - Past Surgical History HEENT Surgical History: Reports: Oral Surgery, Other (See Below) Other HEENT Surgeries/Procedures: jaw surgery GI Surgical History: Reports: Hernia, Inguinal Musculoskeletal Surgical History: Reports: None Social & Family History - Family History Family Medical History: Noncontributory - Tobacco Use Smoking Status *Q: Never Smoker - Caffeine Use Caffeine Use: Reports: Energy Drinks Other Caffeine Use: 2 cans a day - Recreational Drug Use Recreational Drug Use: No - Living Situation & Occupation Living situation: Reports: Single, Alone Occupation: Employed ([employer]) ED ROS GENERAL - Review of Systems Review Of Systems: See Below Constitutional: Reports: No Symptoms HEENT: Reports: Throat Pain Respiratory: Reports: No Symptoms Cardiovascular: Reports: No Symptoms Endocrine: Reports: No Symptoms GI/Abdominal: Reports: No Symptoms : Reports: No Symptoms Musculoskeletal: Reports: No Symptoms ED EXAM, GENERAL - Physical Exam Exam: See Below Exam Limited By: No Limitations General Appearance: Alert, No Apparent Distress Ears: Normal External Exam Nose: Normal Inspection Throat/Mouth: Other (Erythema and edema of the right posterior pharynx with swollen tonsills on both sides.) Head: Atraumatic, Normocephalic Neck: Lymphadenopathy (L), Lymphadenopathy (R) Respiratory/Chest: No Respiratory Distress, Lungs Clear, Normal Breath Sounds Cardiovascular: Regular Rate, Rhythm, No Edema, No Murmur GI/Abdominal: Soft, Non-Tender, No Organomegaly, No Mass Back Exam: Normal Inspection Extremities: Normal Inspection Neurological: Alert, Oriented, No Motor/Sensory Deficits Course - Vital Signs Last Recorded V/S: Last Vital Signs Temp 97.2 F 07/10/18 03:54 Pulse 83 07/10/18 03:54 Resp 16 07/10/18 03:54 BP 129/104 H 07/10/18 03:54 Pulse Ox 97 07/10/18 03:54 - Orders/Labs/Meds Orders: Active Orders 24 hr Category Date Time Status CULTURE STREP A CONFIRMATION [] Stat Lab 07/10/18 04:10 Results STREP SCRN A RAPID W CULT CONF [] Stat Lab 07/10/18 04:10 Results Labs: Laboratory Tests 07/10/18 Range/Units 04:25 Monoscreen Negative (NEGATIVE) - Re-Assessments/Exams Free Text/Narrative Re-Assessment/Exam: 07/10/18 04:11 I ordered a rapid strep and mono. 07/10/18 05:13 Both the mono and strep are negative. He has erythema and edema more to the right side. I feel I need to treat him. Departure - Departure Time of Disposition: 05:15 Disposition: Home, Self-Care 01 Condition: Good Clinical Impression: Pharyngitis Qualifiers: Pharyngitis/tonsillitis etiology: other specified organisms Qualified Code(s): J02.8 - Acute pharyngitis due to other specified organisms - Discharge Information *PRESCRIPTION DRUG MONITORING PROGRAM REVIEWED*: No *COPY OF PRESCRIPTION DRUG MONITORING REPORT IN PATIENT ZANE: No Referrals: PCP,None [Primary Care Provider] - Nini Klein PA-C [Physician Hiv Nurse] - 1 Week Forms: ED Department Discharge Additional Instructions: Take the amoxicillin 2 times per day for 7 days. Take the hydrocodone as needed for pain. Please return if you are worse. - My Orders Last 24 Hours: My Active Orders 07/10/18 04:10 CULTURE STREP A CONFIRMATION [RM] Stat STREP SCRN A RAPID W CULT CONF [] Stat - Assessment/Plan Last 24 Hours: My Active Orders 07/10/18 04:10 CULTURE STREP A CONFIRMATION [RM] Stat STREP SCRN A RAPID W CULT CONF [] Stat
== END 2018-07-10 05:22 | disposition home or self-care (01) ==
LOC: JD.ED 03:46
DX: J02.8 Acute pharyngitis due to other specified organisms (principal)
CPT/HCPCS: 36415; 86308; 87081; 87430; 99283

== ENCOUNTER 2018-07-11 13:01 | Emergency (ER) | payer MEDICAID, OTHER ==
[2018-07-11 13:12] VITALS: BP 159/96
[2018-07-11] MEDS ORDERED: Sodium Chloride 0.9% 10 ML Syringe FLUSH PRN (13:18)
[2018-07-11] MEDS ORDERED: Dexamethasone 10 MG/ML SDV IVPUSH ONE (13:19)
[2018-07-11] MEDS ORDERED: cefTRIAXone 2 GM in Sodium Chloride 0.9% 100 ML IV ONE (13:19)
--- NOTE | 2018-07-11 14:39 | EDM.PDOC ---
ED HPI GENERAL MEDICAL PROBLEM - General Chief Complaint: ENT Problem Stated Complaint: THROAT SWELLING IS NOT BETTER Time Seen by Provider: 07/11/18 13:15 Source of Information: Reports: Patient, RN Notes Reviewed History Limitations: Reports: No Limitations - History of Present Illness INITIAL COMMENTS - FREE TEXT/NARRATIVE: Patient is a 28-year-old male who presents to the ED for the evaluation of increasing difficulty swallowing. He states that he has been having some throat swelling and pressure for around 3 weeks now. 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 His strep and mono screen was negative at that time. He presented back to the [facility] walk-in clinic for symptoms of difficulty swallowing at that time. 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 The patient states that even trying to drink water hurts his throat him immensely. He has not been eating or drinking much due to the pain. He was given some tablets of Campbell at his last ED visit, he states all this doesn' t put him to sleep. He does not have a fever at time of triage, he has been complaining about a mild fever at home however. He states he is a former smoker as well, but he has quit. Throat Pain Score (Numeric/FACES): 5 - Related Data Allergies Allergy/AdvReac Type Severity Reaction Status Date / Time No Known Allergies Allergy Verified 07/11/18 13:06 Home Meds: Home Meds Acetaminophen/oxyCODONE [Percocet 325-10 MG] 1 tab PO Q6H PRN #12 tab 07/11/18 [ Rx] Past Medical History Musculoskeletal History: Reports: Fracture Other Musculoskeletal History: back injury, Fx- no surgery needed. - Infectious Disease History Infectious Disease History: Reports: Chicken Pox, Influenza - Past Surgical History HEENT Surgical History: Reports: Oral Surgery, Other (See Below) Other HEENT Surgeries/Procedures: jaw surgery GI Surgical History: Reports: Hernia, Inguinal Musculoskeletal Surgical History: Reports: None Social & Family History - Family History Family Medical History: Noncontributory - Tobacco Use Smoking Status *Q: Former Smoker Tobacco Use Within Last Twelve Months: No Years of Tobacco use: 2 Packs/Tins Daily: 0.5 Used Tobacco, but Quit: Yes - Caffeine Use Caffeine Use: Reports: Energy Drinks Other Caffeine Use: 2 cans a day - Recreational Drug Use Recreational Drug Use: No - Living Situation & Occupation Living situation: Reports: Single, Alone Occupation: Employed ([employer]) ED ROS ENT - Review of Systems Review Of Systems: See Below Constitutional: Reports: Fever (reported mild fever at home) HEENT: Reports: Throat Pain, Throat Swelling Respiratory: Denies: Shortness of Breath, Wheezing Cardiovascular: Reports: No Symptoms Endocrine: Reports: No Symptoms GI/Abdominal: Reports: Difficulty Swallowing : Reports: No Symptoms Musculoskeletal: Reports: No Symptoms Skin: Reports: No Symptoms Neurological: Reports: No Symptoms Psychiatric: Reports: No Symptoms Hematologic/Lymphatic: Reports: No Symptoms Immunologic: Reports: No Symptoms ED EXAM, ENT - Physical Exam Exam: See Below Exam Limited By: No Limitations General Appearance: Alert, WD/WN, No Apparent Distress Eye Exam: Bilateral Eye: EOMI, Normal Inspection, PERRL Ears: Normal External Exam Nose: Normal Inspection Mouth/Throat: Normal Inspection, Normal Gums, Normal Lips, Normal Teeth, Throat Pain, Tonsillar Swelling (noted to right side of oropharynx). No: Drooling, Muffled Voice, Pharyngeal Erythema, Trismus Head: Atraumatic, Normocephalic Neck: Normal Inspection, Supple, Non-Tender, Full Range of Motion. No: Lymphadenopathy (L), Lymphadenopathy (R) Respiratory/Chest: No Respiratory Distress, Lungs Clear, Normal Breath Sounds, No Accessory Muscle Use, Chest Non-Tender Cardiovascular: Normal Peripheral Pulses, Regular Rate, Rhythm, No Murmur GI/Abdominal: Normal Bowel Sounds, Soft, Non-Tender, No Distention, No Mass Extremities: Normal Inspection, Normal Capillary Refill Neurological: Alert, Oriented, Normal Cognition, No Motor/Sensory Deficits Psychiatric: Normal Affect, Normal Mood Skin: Warm, Dry, Intact, Normal Color, No Rash Course - Vital Signs Last Recorded V/S: Last Vital Signs Temp 98.2 F 07/11/18 13:07 Pulse 100 07/11/18 13:07 Resp 16 07/11/18 13:07 BP 159/96 H 07/11/18 13:07 Pulse Ox 100 07/11/18 13:07 - Orders/Labs/Meds Orders: Active Orders 24 hr Category Date Time Status Peripheral IV Care [RC] . DIRECTED Care 07/11/18 13:19 Active CULTURE BLOOD [BC] Stat Lab 07/11/18 13:40 Received CULTURE BLOOD [BC] Stat Lab 07/11/18 13:49 Received Blood Culture x2 Reflex Set [OM.PC] Stat Oth 07/11/18 13:21 Ordered Peripheral IV Insertion Adult [OM.PC] Routine Oth 07/11/18 13:19 Ordered Labs: Laboratory Tests 07/11/18 07/11/18 07/11/18 Range/Units 13:40 13:40 13:40 WBC 11.09 H (4.23-9.07) K/mm3 RBC 5.46 (4.63-6.08) M/mm3 Hgb 15.8 (13.7-17.5) gm/L Hct 46.0 (40.1-51.0) % MCV 84.2 (79.0-92.2) fl MCH 28.9 (25.7-32.2) pg MCHC 34.3 (32.2-35.5) g/dl RDW Std Deviation 38.6 (35.1-43.9) fL Plt Count 359 H (163-337) K/mm3 MPV 9.0 L (9.4-12.3) fl Neutrophils % (Manual) 78 H (40-60) % Band Neutrophils % 0 (0-10) % Lymphocytes % (Manual) 17 L (20-40) % Atypical Lymphs % 0 % Monocytes % (Manual) 5 (2-10) % Eosinophils % (Manual) 0 L (0.8-7.0) % Basophils % (Manual) 0 L (0.2-1.2) Platelet Estimate Adequate RBC Morph Comment Normal ESR 22 H (0-15) mm/hr Sodium 137 (136-145) mEq/L Potassium 4.2 (3.5-5.1) mEq/L Chloride 101 (98-107) mEq/L Carbon Dioxide 25 (21-32) mEq/L Anion Gap 15.2 H (5-15) BUN 13 (7-18) mg/dL Creatinine 0.9 (0.7-1.3) mg/dL Est Cr Clr Drug Dosing 117.33 mL/min Estimated GFR (MDRD) > 60 (>60) mL/min BUN/Creatinine Ratio 14.4 (14-18) Glucose 88 (74-106) mg/dL Calcium 10.0 (8.5-10.1) mg/dL Total Bilirubin 0.8 (0.2-1.0) mg/dL AST 15 (15-37) U/L ALT 25 (16-63) U/L Alkaline Phosphatase 81 (46-116) U/L C-Reactive Protein 10.5 H* (<1.0) mg/dL Total Protein 8.1 (6.4-8.2) g/dl Albumin 3.8 (3.4-5.0) g/dl Globulin 4.3 gm/dL Albumin/Globulin Ratio 0.9 L (1-2) Meds: Medications Discontinued Medications Generic Name Dose Route Start Last Admin Trade Name Freq PRN Reason Stop Dose Admin Dexamethasone 10 mg 07/11/18 13:19 07/11/18 13:45 Dexamethasone IVPUSH 07/11/18 13:20 10 mg ONETIME ONE Administration Hydromorphone HCl 1 mg 07/11/18 15:31 07/11/18 15:43 Dilaudid IVPUSH 07/11/18 15:32 1 mg ONETIME ONE Administration Ceftriaxone Sodium 2 gm/ 100 mls @ 200 mls/hr 07/11/18 13:19 07/11/18 13:45 Sodium Chloride IV 07/11/18 13:48 200 mls/hr Q24H ONE Administration Sodium Chloride 10 ml 07/11/18 13:18 07/11/18 13:42 Saline Flush FLUSH 10 ml ASDIRECTED PRN Administration Keep Vein Open - Re-Assessments/Exams Free Text/Narrative Re-Assessment/Exam: 07/11/18 14:40 Patient presents to the ED for the evaluation of increased difficulty swallowing. I did order CBC, CMP, blood cultures x 2, CRP, and sed rate, his white count was slightly elevated at 11,000, and a CRP is at 10.5. He was mildly dehydrated due to the painful swallowing. I did order 10 mg IV dexamethasone and 22 g of IV Rocephin for initial management. I was able to get a hold of [facility] and talked with Dr. Mcclelland, their ENT communications instructor, she did review the patient's CT and is recommending outpatient evaluation on Friday at 3:30 PM Central time at their ENT clinic for a possible biopsy of the lymph nodes involved. I will give the patient these recommendations, and see if he needs any further pain medications to be able to make it to this appointment on Friday. 07/11/18 15:14 His culture results did grow out beta Streptococcus group C from the strep culture. The amoxicillin and Rocephin should provide pretty good coverage for this as well. We'll discharge him home with some tablets of Percocet for pain as needed and recommend that the patient follow up with ENT on Friday. 07/11/18 15:32 Patient was still having increased throat pain at the time of discharge, I did order 1 mg IV Dilaudid before he be discharged. Departure - Departure Time of Disposition: 15:12 Disposition: Home, Self-Care 01 Condition: Fair Clinical Impression: Pharyngitis Qualifiers: Pharyngitis/tonsillitis etiology: other specified organisms Qualified Code(s): J02.8 - Acute pharyngitis due to other specified organisms - Discharge Information *PRESCRIPTION DRUG MONITORING PROGRAM REVIEWED*: No *COPY OF PRESCRIPTION DRUG MONITORING REPORT IN PATIENT ZANE: No Prescriptions: Acetaminophen/oxyCODONE [Percocet 325-10 MG] 1 tab PO Q6H PRN #12 tab PRN Reason: Pain Instructions: Pharyngitis, [id number] Referrals: PCP,None [Primary Care Provider] - Forms: ED Department Discharge Additional Instructions: You have been evaluated in the ED today for your difficulty swallowing. You have been given 10 mg IV dexamethasone, this is a steroid to help inflammation in your throat. You have also been given 2 g Rocephin IV, this is an antibiotic. Your strep culture from your previous ED visit did grow out beta Streptococcus group C type strep the antibiotics that Dr. Escobedo prescribed to you and Rocephin given to you in the ED should cover you for this, please take the antibiotics as previously prescribed. An ENT doctor, Dr. Mcclelland, at [facility] in [place] has made an appointment for you to be evaluated by her this July 13 at 3:30 PM Central time at her clinic located at [address] [place] [address] in [facility]. This appointment will be for evaluation of the lymph node findings on your CT done at the walk-in clinic today. You have been given a prescription for pain medication please take one tab every 6 hours as needed for pain relief. This can be somewhat constipating so please increase your oral fluid intake or start a stool softener so you do not get constipation. Please return to the ED if your symptoms change or worsen. - My Orders Last 24 Hours: My Active Orders 07/11/18 13:19 Peripheral IV Care [RC] . DIRECTED Peripheral IV Insertion Adult [OM.PC] Routine 07/11/18 13:21 Blood Culture x2 Reflex Set [OM.PC] Stat 07/11/18 13:40 CULTURE BLOOD [BC] Stat 07/11/18 13:49 CULTURE BLOOD [BC] Stat - Assessment/Plan Last 24 Hours: My Active Orders 07/11/18 13:19 Peripheral IV Care [RC] . DIRECTED Peripheral IV Insertion Adult [OM.PC] Routine 07/11/18 13:21 Blood Culture x2 Reflex Set [OM.PC] Stat 07/11/18 13:40 CULTURE BLOOD [BC] Stat 07/11/18 13:49 CULTURE BLOOD [BC] Stat
[2018-07-11] MEDS ORDERED: HYDROmorphone 1 MG/ML Syringe IVPUSH ONE (15:31)
== END 2018-07-11 15:50 | disposition home or self-care (01) ==
LOC: JD.ED 13:01
DX: J02.8 Acute pharyngitis due to other specified organisms (principal); Z87.891 Personal history of nicotine dependence
CPT/HCPCS: 36415; 80053; 85007; 85027; 85652; 86140; 87040; 96365; 96375; 99283; J0696; J1100; J1170; J7030

== ENCOUNTER 2018-12-16 16:48 | Emergency (ER) | payer OTHER ==
[2018-12-16 16:56] VITALS: BP 142/96; PULSE 92
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
[2018-12-16] MEDS ORDERED: Ketorolac 60 MG/2 ML SDV IM ONE (19:57)
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
== END 2018-12-16 21:32 | disposition home or self-care (01) ==
LOC: JD.ED 16:48
DX: R09.1 Pleurisy (principal)
CPT/HCPCS: 36415; 71046; 80053; 85007; 85027; 85379; 86140; 96372; 99284; J1885

== ENCOUNTER 2020-12-25 18:49 | Emergency (ER) | payer OTHER ==
[2020-12-25 19:09] VITALS: BP 141/102; PULSE 75
--- NOTE | 2020-12-25 19:24 | EDM.PDOC ---
ED HPI GENERAL MEDICAL PROBLEM - General Chief Complaint: Chest Pain Stated Complaint: CHEST/BACK PAIN Time Seen by Provider: 12/25/20 19:24 - History of Present Illness INITIAL COMMENTS - FREE TEXT/NARRATIVE: 30-year-old male presents the emergency room with chest pain. This pain started yesterday. Patient was not physically active yesterday does not know exactly what he did. He does not have a substernal pressure or pain associated with this it seems to be associated to the left anterior chest wall. It is aggravated by using his arms and doing stuff. Patient has no history of coronary artery disease. He has not really tried anything for the discomfort. Left Upper Chest Pain Score (Numeric/FACES): 5 - Related Data Allergies Allergy/AdvReac Type Severity Reaction Status Date / Time No Known Allergies Allergy Verified 12/25/20 19:08 Home Meds: Home Meds . [No Known Home Meds] 12/25/20 [History] Past Medical History Musculoskeletal History: Reports: Fracture Other Musculoskeletal History: back injury, Fx- no surgery needed. T6 fx, hx left hand - Infectious Disease History Infectious Disease History: Reports: Chicken Pox, Influenza - Past Surgical History HEENT Surgical History: Reports: Oral Surgery, Other (See Below) Other HEENT Surgeries/Procedures: jaw surgery GI Surgical History: Reports: Hernia, Inguinal Musculoskeletal Surgical History: Reports: None Social & Family History - Family History Family Medical History: No Pertinent Family History - Caffeine Use Caffeine Use: Reports: Coffee, Energy Drinks, Soda, Tea Other Caffeine Use: 2 cans a day - Living Situation & Occupation Living situation: Reports: Single, Alone Occupation: Employed ([employer]) ED ROS GENERAL - Review of Systems Review Of Systems: See Below Constitutional: Reports: No Symptoms HEENT: Reports: No Symptoms Respiratory: Reports: Pleuritic Chest Pain. Denies: Shortness of Breath, Cough, Sputum Cardiovascular: Reports: Chest Pain. Denies: Blood Pressure Problem, Dyspnea on Exertion, Edema Endocrine: Reports: No Symptoms GI/Abdominal: Reports: No Symptoms Musculoskeletal: Reports: Other (Chest wall pain) Neurological: Reports: No Symptoms Psychiatric: Reports: No Symptoms ED EXAM, GENERAL - Physical Exam Exam: See Below Exam Limited By: No Limitations General Appearance: Alert, No Apparent Distress Head: Atraumatic, Normocephalic Neck: Normal Inspection, Supple, Non-Tender, Full Range of Motion Respiratory/Chest: No Respiratory Distress, Lungs Clear, Normal Breath Sounds, Other (He has left anterior chest wall discomfort where the muscles insert coming from the shoulder. No other clearly identifiable muscle groups.) Cardiovascular: Normal Peripheral Pulses, Regular Rate, Rhythm, No Edema GI/Abdominal: Normal Bowel Sounds, Soft, Non-Tender Back Exam: Normal Inspection. No: CVA Tenderness (L), CVA Tenderness (R) Extremities: Normal Inspection, No Pedal Edema #1 Interpretation EKG Date: 12/25/20 Rhythm: NSR Rate (Beats/Min): 75 [place]: Normal P-Wave: Present QRS: Other (Fairly normal normal RSR in V1 and V2) ST-T: Normal QT: Normal Comparison: NA - No Prior EKG EKG Interpretation Comments: Borderline EKG Course - Vital Signs Last Recorded V/S: Last Vital Signs Temp 36.9 C 12/25/20 19:05 Pulse 75 12/25/20 19:05 Resp 18 12/25/20 19:05 BP 141/102 H 12/25/20 19:05 Pulse Ox 100 12/25/20 19:05 - Orders/Labs/Meds Orders: Active Orders 24 hr Category Date Time Status Chest 1V Frontal [CR] Stat Exams 12/25/20 19:42 Taken Labs: Laboratory Tests 12/25/20 12/25/20 12/25/20 Range/Units 19:47 19:47 19:47 WBC 8.10 (4.23-9.07) K/mm3 RBC 5.28 (4.63-6.08) M/mm3 Hgb 15.7 (13.7-17.5) gm/dl Hct 44.6 (40.1-51.0) % MCV 84.5 (79.0-92.2) fl MCH 29.7 (25.7-32.2) pg MCHC 35.2 (32.2-35.5) g/dl RDW Std Deviation 36.7 (35.1-43.9) fL Plt Count 281 (163-337) K/mm3 MPV 9.6 (9.4-12.3) fl Neut % (Auto) 66.6 (34.0-67.9) % Lymph % (Auto) 23.5 (21.8-53.1) % [place] % (Auto) 9.3 (5.3-12.2) % Eos % (Auto) 0.4 L (0.8-7.0) Baso % (Auto) 0.1 (0.1-1.2) % Neut # (Auto) 5.40 H (1.78-5.38) K/mm3 Lymph # (Auto) 1.90 (1.32-3.57) K/mm3 [place] # (Auto) 0.75 (0.30-0.82) K/mm3 Eos # (Auto) 0.03 L (0.04-0.54) K/mm3 Baso # (Auto) 0.01 (0.01-0.08) K/mm3 PT 11.4 (9.7-12.0) SECONDS INR 1.03 D-Dimer, Quantitative < 0.19 L (0.19-0.50) mg/L Sodium 137 (136-145) mEq/L Potassium 3.5 (3.5-5.1) mEq/L Chloride 102 (98-107) mEq/L Carbon Dioxide 30 (21-32) mEq/L Anion Gap 8.5 (5-15) BUN 8 (7-18) mg/dL Creatinine 1.0 (0.7-1.3) mg/dL Est Cr Clr Drug Dosing 101.29 mL/min Estimated GFR (MDRD) > 60 (>60) mL/min BUN/Creatinine Ratio 8.0 L (14-18) Glucose 109 H (70-99) mg/dL Calcium 8.8 (8.5-10.1) mg/dL Total Bilirubin 0.7 (0.2-1.0) mg/dL AST 20 (15-37) U/L ALT 32 (16-63) U/L Alkaline Phosphatase 57 (46-116) U/L Troponin I < 0.017 (0.00-0.056) ng/mL Total Protein 7.5 (6.4-8.2) g/dl Albumin 4.0 (3.4-5.0) g/dl Globulin 3.5 gm/dL Albumin/Globulin Ratio 1.1 (1-2) - Re-Assessments/Exams Free Text/Narrative Re-Assessment/Exam: 12/25/20 20:55 EKG looks good labs are nondiagnostic troponin negative D-dimer negative. Chest x-ray has an RSR in V1 and V2 otherwise normal EKG at this point will discharge patient home recommend ibuprofen or naproxen for discomfort. Departure - Departure Time of Disposition: 21:00 Disposition: Home, Self-Care 01 Clinical Impression: Chest pain - Discharge Information Referrals: PCP,None [Primary Care Provider] - Forms: ED Department Discharge Additional Instructions: Your chest pain is thought to be muscle skeletal. However if you are not getting better or if this worsens immediately return to the emergency room. Use naproxen or ibuprofen as needed for discomfort. Graph follow-up in the hospital clinic at the end of this week if not significantly better their phone number is [phone] Sepsis Event Note (ED) - Evaluation Sepsis Screening Result: No Definite Risk - Focused Exam Vital Signs: Vital Signs Temp Pulse Resp BP Pulse Ox 12/25/20 19:05 36.9 C 75 18 141/102 H 100 - My Orders Last 24 Hours: My Active Orders 12/25/20 19:42 Chest 1V Frontal [CR] Stat - Assessment/Plan Last 24 Hours: My Active Orders 12/25/20 19:42 Chest 1V Frontal [CR] Stat
--- NOTE | 2020-12-26 08:07 | CR ---
Chest: Portable view of the chest was obtained. Comparison: Prior chest x-ray of 12/16/18. Heart size and mediastinum are normal. Lungs are clear with no acute parenchymal change. Several compression deformities are seen on prior study within the mid thoracic spine which appear stable on current study. No definite acute bony abnormality is seen. Impression: 1. Nothing acute is seen on portable chest x-ray. Diagnostic code #2
== END 2020-12-25 21:15 | disposition home or self-care (01) ==
LOC: JD.ED 18:49
DX: R07.2 Precordial pain (principal)
CPT/HCPCS: 36415; 71045; 71045-26; 80053; 84484; 85025; 85379; 85610; 93005; 93010; 99283; 99285-25

== ENCOUNTER 2025-01-24 11:38 | Emergency (ER) | payer BC, OTHER ==
[2025-01-24 12:51] LABS: BASOPHILS ABSOLUTE AUTO 0.1 K/mm3 (0.0-0.2); BASOPHILS PERCENT AUTO 0.5 % (0.0-1.0); EOSINOPHILS ABSOLUTE AUTO 0.1 K/mm3 (0.0-0.4); EOSINOPHILS PERCENT AUTO 0.5 % (0.0-6.0); IMMATURE GRAN ABSOLUTE AUTO 0.07 K/mm3 (0.00-0.05); IMMATURE GRAN PERCENT AUTO 0.6 % (0.0-0.4); LYMPHOCYTES ABSOLUTE AUTO 2.7 K/mm3 (1.0-4.8); LYMPHOCYTES PERCENT AUTO 23.2 % (24.0-44.0); MEAN PLATELET VOLUME 8.3 fl (9.4-12.4); MONOCYTES ABSOLUTE AUTO 0.9 K/mm3 (0.0-0.8); MONOCYTES PERCENT AUTO 8.2 % (0.0-8.0); NEUTROPHILS ABSOLUTE AUTO 7.6 K/mm3 (1.8-7.7); NEUTROPHILS PERCENT AUTO 67.0 % (41.0-71.0); NRBC ABSOLUTE 0.00 (0.00-0.02); NRBC PERCENT 0.0 % (0.0-0.2); PLATELET COUNT,PLT 438 K/mm3 (150-400); RED BLOOD CELL COUNT 5.13 M/mm3 (4.52-5.90); WHITE BLOOD CELL COUNT,WBC 11.42 K/mm3 (3.9-11.3)
[2025-01-24 13:22] LABS: A/G RATIO 0.9 (1-2); ALANINE AMINOTRANSFERASE,ALT 62.0 U/L (16-63); ASPARTATE AMNIOTRANSFERASE,AST 29.0 U/L (15-37); BILIRUBIN TOTAL 0.3 mg/dL (0.2-1.0); BLOOD UREA NITROGEN,BUN 9.0 mg/dL (7-18); CARBON DIOXIDE,CO2 31.0 mEq/L (21-32); CHLORIDE,CL 101.0 mEq/L (98-107); CREATININE 0.9 mg/dL (0.7-1.3); EST CRCL DRUG DOSING (CG) 114.56 mL/min; ESTIMATED GFR 114.0 mL/min (>60); GLUCOSE RANDOM 94.0 mg/dL (70-99); POTASSIUM,K 3.4 mEq/L (3.5-5.1); PROTEIN TOTAL,TP 7.8 g/dl (6.4-8.2); SODIUM,NA 142.0 mEq/L (136-145)
[2025-01-24 14:43] VITALS: BP 158/99; PULSE 76
== END 2025-01-24 14:36 | disposition home or self-care (01) ==
LOC: JD.ED 11:38
DX: J98.9 Respiratory disorder, unspecified (principal); T38.0X5A Adverse effect of glucocorticoids and synthetic analogues, initial encounter; Z79.899 Other long term (current) drug therapy
CPT/HCPCS: 36415; 71046; 71046-26; 80053; 83880; 85025; 86140; 99283

== ENCOUNTER 2025-01-29 13:48 | Emergency (ER) | payer BC ==
[2025-01-29 16:22] LABS: APPEARANCE,URINE CLEAR (Clear); GLUCOSE,URINE NEGATIVE (Negative); OCCULT BLOOD,URINE NEGATIVE (Negative)
[2025-01-29 16:36] LABS: EPITHELIAL CELLS,URINE 0-5 /hpf (0-5)
[2025-01-29 18:56] VITALS: BP 146/103; PULSE 90
== END 2025-01-29 18:56 | disposition home or self-care (01) ==
LOC: JD.ED 13:48
DX: N50.811 Right testicular pain (principal)
CPT/HCPCS: 76870; 76870-26; 81001; 93975; 99283; 99284